=== PATIENT | female | born 1960 | race Caucasian/White ===

== ENCOUNTER 2017-07-10 18:43 | Emergency (ER) | payer OTHER, BC ==
[~2017-07-10] VITALS: Ht 165.1 cm; Wt 65.4 kg
[~2017-07-10 18:43] MED LIST: KEFLEX500 MG PO; NAPROSYN500 MG PO; NEXIUM40 MG PO; YAZ1 TABLET PO
[2017-07-10] MEDS ORDERED: FLEXERIL10 MG PO (21:02)
[2017-07-10] MEDS ORDERED: NAPROSYN500 MG PO (21:02)
[2017-07-10 21:49] VITALS: BP 144/82
== END 2017-07-10 21:51 | disposition home or self-care (01) ==
LOC: EME 18:43
DX: M54.2 Cervicalgia (principal); M54.5 Low back pain; M25.512 Pain in left shoulder; V53.5XXA Driver of pick-up truck or van injured in collision with car, pick-up truck or van in traffic accident, initial encounter; Y92.410 Unspecified street and highway as the place of occurrence of the external cause; I10 Essential (primary) hypertension; K21.9 Gastro-esophageal reflux disease without esophagitis
CPT/HCPCS: 72125; 72131; 73030; 99281; 99284

== ENCOUNTER 2017-07-12 00:35 | Emergency (ER) | payer OTHER, BC ==
[~2017-07-12] VITALS: Ht 165.1 cm; Wt 64.0 kg
[~2017-07-12 00:35] MED LIST changes: +FLEXERIL10 MG PO
[2017-07-12] MEDS ORDERED: PERCOCET 5/31 TABLET PO (03:41)
[2017-07-12] MEDS ORDERED: VALIUM5 MG PO (03:41)
[2017-07-12 04:08] VITALS: BP 136/88
== END 2017-07-12 04:13 | disposition home or self-care (01) ==
LOC: EME 00:35
DX: S16.1XXA Strain of muscle, fascia and tendon at neck level, initial encounter (principal); M62.838 Other muscle spasm; V43.52XA Car driver injured in collision with other type car in traffic accident, initial encounter; Y92.410 Unspecified street and highway as the place of occurrence of the external cause
CPT/HCPCS: 99281; 99284